=== PATIENT | male | born 1935 | race Two or more races ===

== ENCOUNTER → 2017-02-27 | Emergency (ER) | payer OTHER ==
[~2017-02-27] VITALS: Ht 182.9 cm; Wt 59.0 kg
[~2017-02-27] MED LIST: DIAZEPAM10 MG PO; DICLOFENAC SODI50 MG PO; INDERAL1 MG/M1; MEDROLPACK PO; NORVASC5 MG; PREVACID 15MG15 MG; SINGULAIR5 MG; TESSALON PERLE100 M1 PO; TRAMADOL HCL300 MG; TUSSI PRES-B L120 M1 PO; XANAX0.25 MG
== END | disposition home or self-care (01) ==
LOC: ER 11:36
DX: R06.02 Shortness of breath (principal); F41.9 Anxiety disorder, unspecified

== ENCOUNTER 2017-03-05 07:15 | Inpatient (IN) | payer OTHER ==
[2017-05-26] MEDS ORDERED: DOCUSATE SODIU100 MG PO (16:27)
[2017-05-26] MEDS ORDERED: CLONAZEPAM1 MG PO (16:28)
[2017-05-26] MEDS ORDERED: PERCOCET 5-3251 EACH PO (16:28)
== END 2017-05-26 17:58 | DRG 454 ==
LOC: SURH 05-25 04:51 → O/R 05-25 04:51 → SURG 05-25 07:00 → SURH 05-25 10:27 → SURG 05-25 12:45 → SURH 05-26 17:58
PROVIDERS: Orthopaedic Surgery Orthopaedic Surgery of the Spine
PROC: 0RG10A0 Fusion of Cervical Vertebral Joint with Interbody Fusion Device, Anterior Approach, Anterior Column, Open Approach (ICD-10-PCS; 2017-05-25)
PROC: 0RG1071 Fusion of Cervical Vertebral Joint with Autologous Tissue Substitute, Posterior Approach, Posterior Column, Open Approach (ICD-10-PCS; 2017-05-25)
PROC: 07DS3ZZ Extraction of Vertebral Bone Marrow, Percutaneous Approach (ICD-10-PCS; 2017-05-25)
PROC: 0RT30ZZ Resection of Cervical Vertebral Disc, Open Approach (ICD-10-PCS; principal; 2017-05-25 07:00)
DX: M50.023 Cervical disc disorder at C6-C7 level with myelopathy (principal); M47.12 Other spondylosis with myelopathy, cervical region; M48.02 Spinal stenosis, cervical region; I10 Essential (primary) hypertension

== ENCOUNTER 2017-03-07 11:53 | Emergency (ER) | payer OTHER ==
[~2017-03-07] VITALS: Ht 182.9 cm; Wt 59.0 kg
== END 2017-03-07 16:09 | disposition home or self-care (01) ==
LOC: ER 11:53
DX: R42 Dizziness and giddiness (principal); M54.12 Radiculopathy, cervical region

== ENCOUNTER → 2017-05-10 06:40 | Outpatient (CLI) | payer OTHER | END | disposition home or self-care (01) | LOC: RAD 06:40 | DX: R07.89 Other chest pain (principal) ==

== ENCOUNTER → 2017-05-10 06:44 | Outpatient (CLI) | payer OTHER | END | disposition home or self-care (01) | LOC: LAB 06:44 | DX: D68.9 Coagulation defect, unspecified (principal); D64.9 Anemia, unspecified; E03.8 Other specified hypothyroidism ==

== ENCOUNTER 2017-05-17 08:13 | Emergency (ER) | payer OTHER ==
[~2017-05-17] VITALS: Ht 182.9 cm; Wt 61.2 kg
== END 2017-05-17 14:46 | disposition home or self-care (01) ==
LOC: ER 08:13
DX: R42 Dizziness and giddiness (principal); K29.70 Gastritis, unspecified, without bleeding

== ENCOUNTER 2017-06-18 12:52 | Outpatient (CLI) | payer OTHER ==
[~2017-06-18 12:52] MED LIST changes: -METOCLOPRAMIDE10 MG PO
== END 2017-06-18 12:53 | disposition home or self-care (01) ==
LOC: RAD 12:52
DX: M50.00 Cervical disc disorder with myelopathy, unspecified cervical region (principal); Z98.1 Arthrodesis status

== ENCOUNTER → 2017-06-18 | Emergency (ER) | payer OTHER ==
[~2017-06-18] VITALS: Ht 182.9 cm; Wt 59.0 kg
[~2017-06-18] MED LIST changes: +CLONAZEPAM1 MG PO; +DOCUSATE SODIU100 MG PO; +METOCLOPRAMIDE10 MG PO; +PERCOCET 5-3251 EACH PO
== END | disposition home or self-care (01) ==
LOC: ER 08:48
DX: G25.2 Other specified forms of tremor (principal); M54.2 Cervicalgia; R13.19 Other dysphagia

== ENCOUNTER 2017-06-23 06:21 | Emergency (ER) | payer OTHER ==
[~2017-06-23] VITALS: Ht 182.9 cm; Wt 59.0 kg
[2017-06-23] MEDS ORDERED: METOCLOPRAMIDE10 MG PO (13:59)
== END 2017-06-23 14:26 | disposition home or self-care (01) ==
LOC: ER 06:21
DX: R42 Dizziness and giddiness (principal); M54.2 Cervicalgia

== ENCOUNTER 2017-07-12 12:06 | Emergency (ER) | payer OTHER ==
[~2017-07-12] VITALS: Ht 182.9 cm; Wt 59.9 kg
[~2017-07-12 12:06] MED LIST changes: +METOCLOPRAMIDE10 MG PO
[2017-07-12] MEDS ORDERED: XANAX XR0.5 MG PO (12:33)
[2017-07-12] MEDS ORDERED: A/F PAIN RELIE500 MG (12:34)
== END 2017-07-12 14:53 | disposition home or self-care (01) ==
LOC: ER 12:06
DX: G89.18 Other acute postprocedural pain (principal); M54.2 Cervicalgia

== ENCOUNTER 2017-07-19 11:02 | Outpatient (CLI) | payer OTHER | END 2017-07-19 11:13 | disposition home or self-care (01) | LOC: MRI 11:02 | DX: M50.30 Other cervical disc degeneration, unspecified cervical region (principal); Z98.1 Arthrodesis status | CPT/HCPCS: 72141 ==

== ENCOUNTER → 2017-07-19 | Emergency (ER) | payer OTHER ==
[~2017-07-19] VITALS: Ht 182.9 cm; Wt 59.0 kg
[~2017-07-19] MED LIST changes: +A/F PAIN RELIE500 MG; +XANAX XR0.5 MG PO
== END | disposition left against medical advice (07) ==
LOC: ER 06:11
DX: Z53.20 Procedure and treatment not carried out because of patient's decision for unspecified reasons (principal)
CPT/HCPCS: 72141

== ENCOUNTER 2017-12-06 15:43 | Emergency (ER) | payer OTHER ==
[~2017-12-06] VITALS: Ht 182.9 cm; Wt 62.6 kg
[~2017-12-06 15:43] MED LIST changes: +DICLOFENAC POTA50 MG PO
[2017-12-06] MEDS ORDERED: FOLIC ACID1 MG (16:06)
[2017-12-06] MEDS ORDERED: LIPITOR20 MG (16:08)
[2017-12-06] MEDS ORDERED: ISOSORBIDE DINI30 MG (16:08)
[2017-12-06] MEDS ORDERED: ASPIR 8181 MG (16:08)
== END 2017-12-06 18:55 | disposition home or self-care (01) ==
LOC: ER 15:43
DX: R51 Headache (principal); R53.1 Weakness

== ENCOUNTER 2017-12-28 13:04 | Outpatient (CLI) | payer OTHER ==
[~2017-12-28 13:04] MED LIST changes: +ASPIR 8181 MG; +FOLIC ACID1 MG; +ISOSORBIDE DINI30 MG; +LIPITOR20 MG
== END 2017-12-28 13:30 | disposition home or self-care (01) ==
LOC: TOM 13:04
DX: G25.0 Essential tremor (principal); G44.219 Episodic tension-type headache, not intractable; G40.109 Localization-related (focal) (partial) symptomatic epilepsy and epileptic syndromes with simple partial seizures, not intractable, without status epilepticus

== ENCOUNTER 2017-12-31 11:38 | Emergency (ER) | payer OTHER ==
[~2017-12-31] VITALS: Ht 182.9 cm; Wt 62.6 kg
== END 2017-12-31 14:27 | disposition home or self-care (01) ==
LOC: ER 11:38
DX: G89.29 Other chronic pain (principal); M54.89 Other dorsalgia

== ENCOUNTER 2018-01-05 10:36 | Outpatient (CLI) | payer OTHER | END 2018-01-05 15:41 | disposition home or self-care (01) | LOC: MRI 10:36 | DX: M51.06 Intervertebral disc disorders with myelopathy, lumbar region (principal); M54.2 Cervicalgia; M54.5 Low back pain | CPT/HCPCS: 72141; 72148 ==

== ENCOUNTER 2018-01-07 10:17 | Emergency (ER) | payer OTHER ==
[~2018-01-07] VITALS: Ht 182.9 cm; Wt 61.2 kg
== END 2018-01-07 11:15 | disposition home or self-care (01) ==
LOC: ER 10:17
DX: M48.02 Spinal stenosis, cervical region (principal)

== ENCOUNTER 2018-04-08 14:02 | Emergency (ER) | payer OTHER ==
[~2018-04-08] VITALS: Ht 182.9 cm; Wt 61.2 kg
== END 2018-04-08 17:28 | disposition home or self-care (01) ==
LOC: ER 14:02
DX: M54.2 Cervicalgia (principal)

== ENCOUNTER 2020-01-06 11:22 | Emergency (ER) | payer OTHER ==
[~2020-01-06] VITALS: Ht 167.6 cm; Wt 59.0 kg
[2020-01-06] MEDS ORDERED: SKELAXIN800 MG PO (16:35)
[2020-01-06] MEDS ORDERED: DICLOFENAC SODI50 MG PO (16:35)
[2020-01-06] MEDS ORDERED: PREDNISONE20 M1 PO (16:35)
== END 2020-01-06 16:46 | disposition home or self-care (01) ==
LOC: ER 11:22
DX: M54.12 Radiculopathy, cervical region (principal); M54.2 Cervicalgia; M62.838 Other muscle spasm

== ENCOUNTER → 2021-03-23 | Emergency (ER) | payer OTHER ==
[~2021-03-23] VITALS: Ht 170.2 cm; Wt 49.9 kg
[~2021-03-23] MED LIST changes: +PREDNISONE20 M1 PO; +SKELAXIN800 MG PO
== END | disposition left against medical advice (07) ==
LOC: ER 14:11
DX: M47.892 Other spondylosis, cervical region (principal); E86.0 Dehydration

== ENCOUNTER 2021-10-03 12:13 | Emergency (ER) | payer OTHER ==
[~2021-10-03] VITALS: Ht 182.9 cm; Wt 61.2 kg
== END 2021-10-03 17:02 | disposition home or self-care (01) ==
LOC: ER 12:13
DX: S39.012A Strain of muscle, fascia and tendon of lower back, initial encounter (principal); W18.30XA Fall on same level, unspecified, initial encounter; Y93.9 Activity, unspecified; Y92.018 Other place in single-family (private) house as the place of occurrence of the external cause; Y99.9 Unspecified external cause status; M25.512 Pain in left shoulder; M47.812 Spondylosis without myelopathy or radiculopathy, cervical region; I10 Essential (primary) hypertension